=== PATIENT | female | born 1965 | race Caucasian/White ===

== ENCOUNTER 2020-08-27 14:20 | Inpatient (IN) | payer OTHER, SELFPAY ==
[2020-08-27] MEDS ORDERED: Morphine 4 MG/ML VIAL ONE ×2 (15:02→19:06)
[2020-08-27 16:35] LABS: #Basophils 0.1 thou/uL (0.0-0.2); #Eosinphils 0.4 thou/uL (0.0-0.7); #Lymphocytes 1.8 thou/uL (1.20-3.40); #Monocytes 0.7 thou/uL (0.11-0.59); #Neutrophils 7.3 thou/uL (1.40-6.50); %Basophils 0.6 % (0.0-1.0); %Eosinophils 3.7 % (0.0-10.0); %Lymphocytes 17.2 % (21.0-51.0); %Monocytes 6.8 % (0.0-10.0); %Neutrophils 71.7 % (42.0-75.0); Mean Corpuscular HGB CONC 32.2 g/dL (32.0-36.0); Mean Corpuscular Hemoglobin 26.7 pg (27.0-31.0); Mean Corpuscular Volume 82.8 fL (78.0-98.0); Mean Platelet Volume 6.6 fL (7.4-10.4); Platelet Count 252 thou/uL (130-400); RBC Distribution Width 14.2 % (11.5-14.5); White Blood Cell (WBC) Count 10.2 thou/uL (4.8-10.8)
[2020-08-27 16:41] LABS: INR-International Normal Ratio 1.1; PTT 27.1 sec (22.9-36.1); Prothrombin Time 14.1 sec (12.0-14.7)
[2020-08-27 16:57] LABS: ALT (SGPT) 11 U/L (8-55); AST (SGOT) 10 U/L (5-34); Albumin 3.9 g/dL (3.5-5.0); Alkaline Phosphatase 74 U/L (40-110); Anion Gap 16 mmol/L (10-20); BUN (Urea Nitrogen) 24 mg/dL (9.8-20.1); Bilirubin, Total 0.3 mg/dL (0.2-1.2); Calc. Creatinine Clearance 0 mL/min (70-130); Calcium 9.5 mg/dL (7.8-10.44); Carbon Dioxide 25 mmol/L (22-29); Chloride 105 mmol/L (98-107); Globulin 2.8 g/dL (2.4-3.5); Glucose 83 mg/dL (70-105); Potassium 4.8 mmol/L (3.5-5.1); Protein, Total 6.7 g/dL (6.0-8.3); Sodium 141 mmol/L (136-145)
[2020-08-27] MEDS ORDERED: Ondansetron ODT 4 MG TAB PO PRN (19:03)
[2020-08-27] MEDS ORDERED: Morphine 2 MG/ML VIAL SLOW IVP PRN (19:03)
[2020-08-27] MEDS ORDERED: Dextrose 50% Abboject 50 ML SYRINGE SLOW IVP PRN (19:03)
[2020-08-27] MEDS ORDERED: Dextrose 5% in Water 1,000 ML IV PRN (19:03)
[2020-08-27] MEDS ORDERED: Promethazine HCl 25 MG/ML VIAL IM PRN (19:03)
[2020-08-27] MEDS ORDERED: Insulin Regular 300 UNITS/3 ML VIAL SC PRN ×2 (19:03)
[2020-08-27] MEDS ORDERED: hydrALAZINE 20 MG/ML VIAL SLOW IVP PRN (19:03)
[2020-08-27] MEDS ORDERED: Ondansetron PF 4 MG/2 ML Vial IVP PRN (19:03)
[2020-08-27 20:14] VITALS: BMI 32.8
[2020-08-27] MEDS: Famotidine 20 MG TAB PO SCH (20:26)
[2020-08-27] MEDS: Acetaminophen 325 MG TAB PO SCH (20:26)
[2020-08-27] MEDS: Ibuprofen 200 MG TAB PO SCH (20:27)
[2020-08-27] MEDS: Cyclobenzaprine 10 MG TAB PO PRN (20:31)
[2020-08-27] MEDS: Sodium Chloride 0.9% 1,000 ML IV SCH (23:16)
[2020-08-28] MEDS: Acetaminophen 325 MG TAB PO SCH ×4 (01:23→19:20)
[2020-08-28 04:20] LABS: SARS-CoV-2 PCR by NAA Not Detected (NotDetected)
[2020-08-28] MEDS: Sodium Chloride 0.9% 1,000 ML IV SCH (05:00)
[2020-08-28] MEDS: Ibuprofen 200 MG TAB PO SCH (05:00)
[2020-08-28 05:27] LABS: #Basophils 0.1 thou/uL (0.0-0.2); #Eosinphils 0.3 thou/uL (0.0-0.7); #Lymphocytes 1.8 thou/uL (1.20-3.40); #Monocytes 0.6 thou/uL (0.11-0.59); #Neutrophils 4.2 thou/uL (1.40-6.50); %Basophils 0.9 % (0.0-1.0); %Eosinophils 4.4 % (0.0-10.0); %Lymphocytes 25.8 % (21.0-51.0); %Monocytes 7.9 % (0.0-10.0); %Neutrophils 60.9 % (42.0-75.0); Hemoglobin 10.6 g/dL (12.0-16.0); Mean Corpuscular HGB CONC 32.3 g/dL (32.0-36.0); Mean Corpuscular Hemoglobin 26.7 pg (27.0-31.0); Mean Corpuscular Volume 82.7 fL (78.0-98.0); Mean Platelet Volume 6.7 fL (7.4-10.4); Platelet Count 216 thou/uL (130-400); RBC Distribution Width 14.3 % (11.5-14.5); Red Blood Cell (RBC) Count 3.97 mill/uL (4.20-5.40); White Blood Cell (WBC) Count 6.9 thou/uL (4.8-10.8)
[2020-08-28 05:39] LABS: Anion Gap 13 mmol/L (10-20); BUN (Urea Nitrogen) 27 mg/dL (9.8-20.1); Calc. Creatinine Clearance 83 mL/min (70-130); Calcium 8.5 mg/dL (7.8-10.44); Carbon Dioxide 26 mmol/L (22-29); Chloride 105 mmol/L (98-107); Glucose 95 mg/dL (70-105); Potassium 4.4 mmol/L (3.5-5.1); Sodium 140 mmol/L (136-145)
[2020-08-28] MEDS ORDERED: Ibuprofen 200 MG TAB PO PRN (07:28)
[2020-08-28] MEDS ORDERED: Clindamycin/D5W 900 MG in Premix Bag 1 BAG IVPB SCH (07:45)
[2020-08-28] MEDS: Metoprolol Tartrate 100 MG TAB PO SCH ×2 (08:08→19:21)
[2020-08-28] MEDS: Famotidine 20 MG TAB PO SCH ×2 (08:08→19:19)
[2020-08-28] MEDS: Ferrous Sulfate 325 MG TAB PO SCH ×2 (08:09→16:19)
[2020-08-28] MEDS: Losartan 25 MG TAB PO SCH (08:09)
[2020-08-28] MEDS: Ascorbic Acid 500 mg Chewable Tablet PO SCH ×2 (08:09→19:21)
[2020-08-28] MEDS: Amlodipine 10 MG TAB PO SCH (08:09)
[2020-08-28] MEDS ORDERED: Amlodipine 10 MG TAB PO SCH (09:00)
[2020-08-28] MEDS ORDERED: Aspirin 81 mg Enteric Coated Tablet PO SCH (09:00)
[2020-08-28] MEDS ORDERED: Metoprolol Tartrate 100 MG TAB PO SCH (09:00)
[2020-08-28] MEDS ORDERED: Clindamycin/D5W 900 mg/50 ml Premix Bag ONE (12:24)
[2020-08-28] MEDS ORDERED: Fentanyl 100 MCG/2 ML VIAL ONE ×2 (13:05→13:15)
[2020-08-28] MEDS ORDERED: Rocuronium Bromide 10 MG/ML (10ML VIAL) ONE (13:26)
[2020-08-28] MEDS ORDERED: Ondansetron PF 4 MG/2 ML Vial ONE (13:26)
[2020-08-28] MEDS ORDERED: Glycopyrrolate 0.2 MG/ML 5 ML SYRINGE ONE (13:26)
[2020-08-28] MEDS ORDERED: ePHEDrine 50 MG/ML VIAL ONE (13:26)
[2020-08-28] MEDS ORDERED: PROPOFOL 200 MG/20 ML VIAL ONE (13:26)
[2020-08-28] MEDS ORDERED: Ketorolac Tromethamine 30 MG/ML VIAL ONE (13:26)
[2020-08-28] MEDS ORDERED: Bupivacaine HCl 0.5%/Epinephrine 1:200,000/PF 30 ml Vial ONE (13:26)
[2020-08-28] MEDS ORDERED: PHENYLEPHRINE-NS 100 MCG/ML 10 ML SYRINGE ONE (13:26)
[2020-08-28] MEDS: Clindamycin/D5W 900 MG in Premix Bag 1 BAG IVPB SCH ×2 (14:54→22:03)
[2020-08-28] MEDS: traMADol HCl 50 MG TAB PO PRN (17:48)
[2020-08-28] MEDS: Cyclobenzaprine 10 MG TAB PO PRN (19:19)
[2020-08-28] MEDS: Atorvastatin Calcium 40 MG TAB PO SCH (19:21)
[2020-08-29] MEDS: Acetaminophen 325 MG TAB PO SCH ×4 (02:56→19:46)
[2020-08-29 05:28] LABS: #Eosinphils 0.3 thou/uL (0.0-0.7); #Lymphocytes 1.5 thou/uL (1.20-3.40); #Monocytes 0.7 thou/uL (0.11-0.59); #Neutrophils 5.7 thou/uL (1.40-6.50); %Basophils 0.4 % (0.0-1.0); %Eosinophils 4.1 % (0.0-10.0); %Lymphocytes 18.4 % (21.0-51.0); %Monocytes 8.1 % (0.0-10.0); Hemoglobin 10.2 g/dL (12.0-16.0); Mean Corpuscular HGB CONC 33.9 g/dL (32.0-36.0); Mean Corpuscular Volume 82.6 fL (78.0-98.0); Mean Platelet Volume 6.6 fL (7.4-10.4); Platelet Count 194 thou/uL (130-400); RBC Distribution Width 14.4 % (11.5-14.5); Red Blood Cell (RBC) Count 3.63 mill/uL (4.20-5.40); White Blood Cell (WBC) Count 8.3 thou/uL (4.8-10.8)
[2020-08-29 05:50] LABS: Anion Gap 12 mmol/L (10-20); BUN (Urea Nitrogen) 22 mg/dL (9.8-20.1); Calc. Creatinine Clearance 79 mL/min (70-130); Calcium 8.3 mg/dL (7.8-10.44); Carbon Dioxide 27 mmol/L (22-29); Chloride 102 mmol/L (98-107); Glucose 164 mg/dL (70-105); Magnesium 1.6 mg/dL (1.6-2.6); Phosphorus 4.1 mg/dL (2.3-4.7); Potassium 4.7 mmol/L (3.5-5.1); Sodium 136 mmol/L (136-145)
[2020-08-29] MEDS: Ascorbic Acid 500 mg Chewable Tablet PO SCH ×2 (08:18→19:47)
[2020-08-29] MEDS: Famotidine 20 MG TAB PO SCH ×2 (08:18→19:45)
[2020-08-29] MEDS: Losartan 25 MG TAB PO SCH (08:19)
[2020-08-29] MEDS: Amlodipine 10 MG TAB PO SCH (08:19)
[2020-08-29] MEDS: Metoprolol Tartrate 100 MG TAB PO SCH ×2 (08:20→19:47)
[2020-08-29] MEDS: Ferrous Sulfate 325 MG TAB PO SCH ×2 (08:20→16:00)
[2020-08-29] MEDS ORDERED: Magnesium Sulfate 4 GM in Sodium Chloride 0.9% 250 ML 250 ML IVPB SCH (10:30)
[2020-08-29] MEDS: traMADol HCl 50 MG TAB PO PRN ×2 (11:06→19:50)
[2020-08-29] MEDS: Cyclobenzaprine 10 MG TAB PO PRN (14:43)
[2020-08-29] MEDS: Enoxaparin Sodium 40 MG/0.4 ML SYRINGE SC SCH (19:46)
[2020-08-29] MEDS: Atorvastatin Calcium 40 MG TAB PO SCH (19:47)
[2020-08-29] MEDS ORDERED: Enoxaparin Sodium 30 MG/0.3 ML SYRINGE SC SCH (21:00)
[2020-08-30] MEDS: Acetaminophen 325 MG TAB PO SCH ×4 (03:03→19:03)
[2020-08-30 05:31] LABS: Hemoglobin 10.6 g/dL (12.0-16.0); Mean Corpuscular HGB CONC 33.4 g/dL (32.0-36.0); Mean Corpuscular Hemoglobin 27.7 pg (27.0-31.0); Mean Corpuscular Volume 83.1 fL (78.0-98.0); Mean Platelet Volume 6.6 fL (7.4-10.4); Platelet Count 191 thou/uL (130-400); RBC Distribution Width 14.1 % (11.5-14.5); Red Blood Cell (RBC) Count 3.83 mill/uL (4.20-5.40); White Blood Cell (WBC) Count 8.5 thou/uL (4.8-10.8)
[2020-08-30 06:00] LABS: Anion Gap 13 mmol/L (10-20); BUN (Urea Nitrogen) 19 mg/dL (9.8-20.1); Calc. Creatinine Clearance 94 mL/min (70-130); Calcium 8.4 mg/dL (7.8-10.44); Carbon Dioxide 27 mmol/L (22-29); Chloride 101 mmol/L (98-107); Glucose 143 mg/dL (70-105); Potassium 4.8 mmol/L (3.5-5.1); Sodium 136 mmol/L (136-145)
[2020-08-30] MEDS: Metoprolol Tartrate 100 MG TAB PO SCH ×2 (08:48→20:03)
[2020-08-30] MEDS: Ferrous Sulfate 325 MG TAB PO SCH ×2 (08:48→20:03)
[2020-08-30] MEDS: Famotidine 20 MG TAB PO SCH ×2 (08:49→20:03)
[2020-08-30] MEDS: Losartan 25 MG TAB PO SCH (08:49)
[2020-08-30] MEDS: Ascorbic Acid 500 mg Chewable Tablet PO SCH ×2 (08:49→20:03)
[2020-08-30] MEDS: Amlodipine 10 MG TAB PO SCH (08:49)
[2020-08-30] MEDS: Enoxaparin Sodium 40 MG/0.4 ML SYRINGE SC SCH ×2 (08:50→20:04)
[2020-08-30 09:17] LABS: Anion Gap 15 mmol/L (10-20); BUN (Urea Nitrogen) 17 mg/dL (9.8-20.1); Calc. Creatinine Clearance 105 mL/min (70-130); Calcium 8.6 mg/dL (7.8-10.44); Carbon Dioxide 21 mmol/L (22-29); Chloride 104 mmol/L (98-107); Glucose 127 mg/dL (70-105); Magnesium 1.8 mg/dL (1.6-2.6); Phosphorus 3.7 mg/dL (2.3-4.7); Potassium 4.9 mmol/L (3.5-5.1); Sodium 135 mmol/L (136-145)
[2020-08-30] MEDS: traMADol HCl 50 MG TAB PO PRN ×2 (11:29→20:07)
[2020-08-30] MEDS: Atorvastatin Calcium 40 MG TAB PO SCH (20:03)
[2020-08-31] MEDS: Acetaminophen 325 MG TAB PO SCH ×4 (01:04→19:36)
[2020-08-31] MEDS: Enoxaparin Sodium 40 MG/0.4 ML SYRINGE SC SCH ×2 (08:16→21:44)
[2020-08-31] MEDS: Ascorbic Acid 500 mg Chewable Tablet PO SCH ×2 (08:17→21:44)
[2020-08-31] MEDS: Famotidine 20 MG TAB PO SCH (08:17)
[2020-08-31] MEDS: Amlodipine 10 MG TAB PO SCH (08:18)
[2020-08-31] MEDS: Losartan 25 MG TAB PO SCH (08:18)
[2020-08-31] MEDS: Metoprolol Tartrate 100 MG TAB PO SCH ×2 (08:19→21:44)
[2020-08-31] MEDS: Ferrous Sulfate 325 MG TAB PO SCH ×2 (08:22→21:44)
[2020-08-31] MEDS: Senokot S 8.6-50 MG TAB PO SCH ×2 (09:42→21:44)
[2020-08-31] MEDS: Polyethylene Glycol 3350 17 GM Packet PO SCH (09:42)
[2020-08-31] MEDS: traMADol HCl 50 MG TAB PO PRN (09:43)
[2020-08-31] MEDS: Atorvastatin Calcium 40 MG TAB PO SCH (21:44)
[2020-09-01] MEDS: Acetaminophen 325 MG TAB PO SCH ×4 (00:23→18:12)
[2020-09-01] MEDS: Ascorbic Acid 500 mg Chewable Tablet PO SCH ×2 (09:27→21:58)
[2020-09-01] MEDS: Senokot S 8.6-50 MG TAB PO SCH ×2 (09:27→21:58)
[2020-09-01] MEDS: Polyethylene Glycol 3350 17 GM Packet PO SCH (09:27)
[2020-09-01] MEDS: Amlodipine 10 MG TAB PO SCH (09:28)
[2020-09-01] MEDS: Ferrous Sulfate 325 MG TAB PO SCH ×2 (09:28→21:59)
[2020-09-01] MEDS: Losartan 25 MG TAB PO SCH (09:28)
[2020-09-01] MEDS: Metoprolol Tartrate 100 MG TAB PO SCH ×2 (09:29→21:58)
[2020-09-01] MEDS: Enoxaparin Sodium 40 MG/0.4 ML SYRINGE SC SCH ×2 (09:29→21:58)
[2020-09-01] MEDS: traMADol HCl 50 MG TAB PO PRN (18:20)
[2020-09-01] MEDS: Atorvastatin Calcium 40 MG TAB PO SCH (21:58)
[2020-09-02] MEDS: Acetaminophen 325 MG TAB PO SCH ×4 (00:35→17:38)
[2020-09-02] MEDS: Ascorbic Acid 500 mg Chewable Tablet PO SCH ×2 (09:02→21:09)
[2020-09-02] MEDS: Losartan 25 MG TAB PO SCH (09:02)
[2020-09-02] MEDS: Ferrous Sulfate 325 MG TAB PO SCH ×2 (09:02→21:10)
[2020-09-02] MEDS: Metoprolol Tartrate 100 MG TAB PO SCH ×2 (09:02→21:10)
[2020-09-02] MEDS: Amlodipine 10 MG TAB PO SCH (09:02)
[2020-09-02] MEDS: Enoxaparin Sodium 40 MG/0.4 ML SYRINGE SC SCH ×2 (09:03→21:09)
[2020-09-02] MEDS: Polyethylene Glycol 3350 17 GM Packet PO SCH (09:03)
[2020-09-02] MEDS: Senokot S 8.6-50 MG TAB PO SCH ×2 (09:03→21:09)
[2020-09-02] MEDS: traMADol HCl 50 MG TAB PO PRN ×2 (12:31→17:42)
[2020-09-02] MEDS: Atorvastatin Calcium 40 MG TAB PO SCH (21:09)
[2020-09-03] MEDS: Acetaminophen 325 MG TAB PO SCH ×5 (03:59→22:59)
[2020-09-03] MEDS: Losartan 25 MG TAB PO SCH (09:40)
[2020-09-03] MEDS: Amlodipine 10 MG TAB PO SCH (09:41)
[2020-09-03] MEDS: Ascorbic Acid 500 mg Chewable Tablet PO SCH ×2 (09:41→20:13)
[2020-09-03] MEDS: Metoprolol Tartrate 100 MG TAB PO SCH ×2 (09:41→20:14)
[2020-09-03] MEDS: Senokot S 8.6-50 MG TAB PO SCH ×2 (09:42→20:13)
[2020-09-03] MEDS: Ferrous Sulfate 325 MG TAB PO SCH ×2 (09:42→20:14)
[2020-09-03] MEDS: Polyethylene Glycol 3350 17 GM Packet PO SCH (09:43)
[2020-09-03] MEDS: traMADol HCl 50 MG TAB PO PRN (09:43)
[2020-09-03] MEDS: Enoxaparin Sodium 40 MG/0.4 ML SYRINGE SC SCH ×2 (09:43→20:13)
[2020-09-03] MEDS: Atorvastatin Calcium 40 MG TAB PO SCH (20:14)
[2020-09-04] MEDS: traMADol HCl 50 MG TAB PO PRN (05:07)
[2020-09-04] MEDS: Acetaminophen 325 MG TAB PO SCH ×3 (05:08→18:31)
[2020-09-04] MEDS: Senokot S 8.6-50 MG TAB PO SCH ×2 (09:43→20:45)
[2020-09-04] MEDS: Ferrous Sulfate 325 MG TAB PO SCH ×2 (09:43→20:46)
[2020-09-04] MEDS: Enoxaparin Sodium 40 MG/0.4 ML SYRINGE SC SCH ×3 (09:44→20:46)
[2020-09-04] MEDS: Metoprolol Tartrate 100 MG TAB PO SCH ×2 (09:44→20:45)
[2020-09-04] MEDS: Ascorbic Acid 500 mg Chewable Tablet PO SCH ×2 (09:45→20:46)
[2020-09-04] MEDS: Losartan 25 MG TAB PO SCH (09:45)
[2020-09-04] MEDS: Amlodipine 10 MG TAB PO SCH (09:45)
[2020-09-04] MEDS: Polyethylene Glycol 3350 17 GM Packet PO SCH (09:46)
[2020-09-04] MEDS: Atorvastatin Calcium 40 MG TAB PO SCH (20:46)
[2020-09-05] MEDS: Acetaminophen 325 MG TAB PO SCH ×4 (00:21→17:37)
[2020-09-05] MEDS: traMADol HCl 50 MG TAB PO PRN ×3 (00:22→21:36)
[2020-09-05] MEDS: Senokot S 8.6-50 MG TAB PO SCH ×2 (09:14→21:36)
[2020-09-05] MEDS: Polyethylene Glycol 3350 17 GM Packet PO SCH (09:14)
[2020-09-05] MEDS: Losartan 25 MG TAB PO SCH (09:15)
[2020-09-05] MEDS: Metoprolol Tartrate 100 MG TAB PO SCH ×2 (09:15→21:36)
[2020-09-05] MEDS: Ferrous Sulfate 325 MG TAB PO SCH ×2 (09:15→21:36)
[2020-09-05] MEDS: Enoxaparin Sodium 40 MG/0.4 ML SYRINGE SC SCH ×2 (09:15→21:37)
[2020-09-05] MEDS: Ascorbic Acid 500 mg Chewable Tablet PO SCH ×2 (09:15→21:36)
[2020-09-05] MEDS: Amlodipine 10 MG TAB PO SCH (09:15)
[2020-09-05] MEDS ORDERED: metFORMIN 500 MG TAB PO SCH (11:00)
[2020-09-05] MEDS: metFORMIN 500 MG TAB PO SCH (17:38)
[2020-09-05] MEDS: Atorvastatin Calcium 40 MG TAB PO SCH (21:36)
[2020-09-06] MEDS: Acetaminophen 325 MG TAB PO SCH ×4 (00:13→17:22)
[2020-09-06] MEDS: metFORMIN 500 MG TAB PO SCH ×2 (08:23→17:22)
[2020-09-06] MEDS: Losartan 25 MG TAB PO SCH (09:35)
[2020-09-06] MEDS: Ferrous Sulfate 325 MG TAB PO SCH ×2 (09:37→21:34)
[2020-09-06] MEDS: Ascorbic Acid 500 mg Chewable Tablet PO SCH ×2 (09:38→21:33)
[2020-09-06] MEDS: Amlodipine 10 MG TAB PO SCH (09:39)
[2020-09-06] MEDS: Senokot S 8.6-50 MG TAB PO SCH ×2 (09:40→21:33)
[2020-09-06] MEDS: Alogliptin 6.25 MG TAB PO SCH (09:41)
[2020-09-06] MEDS: Metoprolol Tartrate 100 MG TAB PO SCH ×2 (09:41→21:34)
[2020-09-06] MEDS: Enoxaparin Sodium 40 MG/0.4 ML SYRINGE SC SCH ×2 (09:44→21:34)
[2020-09-06] MEDS: Polyethylene Glycol 3350 17 GM Packet PO SCH (09:45)
[2020-09-06] MEDS: Cyclobenzaprine 10 MG TAB PO PRN (21:33)
[2020-09-06] MEDS: Atorvastatin Calcium 40 MG TAB PO SCH (21:34)
[2020-09-07] MEDS: Acetaminophen 325 MG TAB PO SCH ×4 (02:16→17:33)
[2020-09-07] MEDS ORDERED: traMADol HCl 50 MG TAB PO PRN (07:21)
[2020-09-07] MEDS: Cyclobenzaprine 10 MG TAB PO PRN ×2 (08:24→17:33)
[2020-09-07] MEDS: traMADol HCl 50 MG TAB PO PRN (08:25)
[2020-09-07] MEDS: Alogliptin 6.25 MG TAB PO SCH (09:41)
[2020-09-07] MEDS: metFORMIN 500 MG TAB PO SCH ×2 (09:41→17:32)
[2020-09-07] MEDS: Amlodipine 10 MG TAB PO SCH (09:42)
[2020-09-07] MEDS: Ascorbic Acid 500 mg Chewable Tablet PO SCH ×2 (09:42→21:09)
[2020-09-07] MEDS: Enoxaparin Sodium 40 MG/0.4 ML SYRINGE SC SCH ×2 (09:43→20:27)
[2020-09-07] MEDS: Ferrous Sulfate 325 MG TAB PO SCH ×2 (09:43→21:09)
[2020-09-07] MEDS: Polyethylene Glycol 3350 17 GM Packet PO SCH (09:44)
[2020-09-07] MEDS: Senokot S 8.6-50 MG TAB PO SCH ×2 (09:44→21:10)
[2020-09-07] MEDS: Metoprolol Tartrate 100 MG TAB PO SCH ×2 (09:44→21:10)
[2020-09-07] MEDS: Losartan 25 MG TAB PO SCH (09:47)
[2020-09-07] MEDS: Atorvastatin Calcium 40 MG TAB PO SCH (21:09)
[2020-09-08] MEDS: Acetaminophen 325 MG TAB PO SCH ×5 (00:35→23:30)
[2020-09-08] MEDS: metFORMIN 500 MG TAB PO SCH ×2 (06:45→16:43)
[2020-09-08] MEDS: Losartan 25 MG TAB PO SCH (09:14)
[2020-09-08] MEDS: Amlodipine 10 MG TAB PO SCH (09:15)
[2020-09-08] MEDS: Senokot S 8.6-50 MG TAB PO SCH ×2 (09:15→20:52)
[2020-09-08] MEDS: Polyethylene Glycol 3350 17 GM Packet PO SCH (09:15)
[2020-09-08] MEDS: Ascorbic Acid 500 mg Chewable Tablet PO SCH ×2 (09:15→20:51)
[2020-09-08] MEDS: Metoprolol Tartrate 100 MG TAB PO SCH ×2 (09:15→20:52)
[2020-09-08] MEDS: Alogliptin 6.25 MG TAB PO SCH (09:15)
[2020-09-08] MEDS: Enoxaparin Sodium 40 MG/0.4 ML SYRINGE SC SCH ×2 (09:16→20:51)
[2020-09-08] MEDS: Ferrous Sulfate 325 MG TAB PO SCH ×2 (09:16→20:51)
[2020-09-08] MEDS: Atorvastatin Calcium 40 MG TAB PO SCH (20:51)
[2020-09-08] MEDS: Cyclobenzaprine 10 MG TAB PO PRN (23:28)
[2020-09-09] MEDS: Acetaminophen 325 MG TAB PO SCH ×3 (06:09→17:10)
[2020-09-09] MEDS: metFORMIN 500 MG TAB PO SCH ×2 (06:45→17:10)
[2020-09-09] MEDS: Ferrous Sulfate 325 MG TAB PO SCH ×2 (08:26→21:06)
[2020-09-09] MEDS: Losartan 25 MG TAB PO SCH (08:26)
[2020-09-09] MEDS: Senokot S 8.6-50 MG TAB PO SCH ×2 (08:26→21:06)
[2020-09-09] MEDS: Enoxaparin Sodium 40 MG/0.4 ML SYRINGE SC SCH ×2 (08:26→21:07)
[2020-09-09] MEDS: Polyethylene Glycol 3350 17 GM Packet PO SCH (08:26)
[2020-09-09] MEDS: Alogliptin 6.25 MG TAB PO SCH (08:26)
[2020-09-09] MEDS: Amlodipine 10 MG TAB PO SCH (08:26)
[2020-09-09] MEDS: Metoprolol Tartrate 100 MG TAB PO SCH ×2 (08:27→21:07)
[2020-09-09] MEDS: Ascorbic Acid 500 mg Chewable Tablet PO SCH ×2 (08:27→21:06)
[2020-09-09] MEDS: Atorvastatin Calcium 40 MG TAB PO SCH (21:06)
[2020-09-09] MEDS: Cyclobenzaprine 10 MG TAB PO PRN (21:16)
[2020-09-10] MEDS: Acetaminophen 325 MG TAB PO SCH ×5 (00:22→23:32)
[2020-09-10] MEDS: metFORMIN 500 MG TAB PO SCH ×2 (06:30→17:05)
[2020-09-10] MEDS: Polyethylene Glycol 3350 17 GM Packet PO SCH (08:17)
[2020-09-10] MEDS: Alogliptin 6.25 MG TAB PO SCH (08:17)
[2020-09-10] MEDS: Losartan 25 MG TAB PO SCH (08:18)
[2020-09-10] MEDS: Enoxaparin Sodium 40 MG/0.4 ML SYRINGE SC SCH ×2 (08:18→20:23)
[2020-09-10] MEDS: Amlodipine 10 MG TAB PO SCH (08:18)
[2020-09-10] MEDS: Metoprolol Tartrate 100 MG TAB PO SCH ×2 (08:18→20:31)
[2020-09-10] MEDS: Ascorbic Acid 500 mg Chewable Tablet PO SCH ×2 (08:18→20:23)
[2020-09-10] MEDS: Ferrous Sulfate 325 MG TAB PO SCH ×2 (08:19→20:22)
[2020-09-10] MEDS: Senokot S 8.6-50 MG TAB PO SCH ×2 (08:19→20:22)
[2020-09-10] MEDS ORDERED: Ibuprofen 100 MG/5 ML UDCUP PO PRN (09:44)
[2020-09-10] MEDS: traMADol HCl 50 MG TAB PO PRN ×2 (11:41→23:33)
[2020-09-10] MEDS: Atorvastatin Calcium 40 MG TAB PO SCH (20:23)
[2020-09-10] MEDS: Cyclobenzaprine 10 MG TAB PO PRN (20:23)
[2020-09-11] MEDS: Acetaminophen 325 MG TAB PO SCH ×3 (06:25→17:34)
[2020-09-11] MEDS: metFORMIN 500 MG TAB PO SCH ×2 (06:25→17:34)
[2020-09-11] MEDS: Enoxaparin Sodium 40 MG/0.4 ML SYRINGE SC SCH ×2 (08:26→20:49)
[2020-09-11] MEDS: Senokot S 8.6-50 MG TAB PO SCH ×2 (08:26→20:48)
[2020-09-11] MEDS: Ferrous Sulfate 325 MG TAB PO SCH ×2 (08:26→20:48)
[2020-09-11] MEDS: Metoprolol Tartrate 100 MG TAB PO SCH ×2 (08:26→20:48)
[2020-09-11] MEDS: Polyethylene Glycol 3350 17 GM Packet PO SCH (08:26)
[2020-09-11] MEDS: Losartan 25 MG TAB PO SCH (08:26)
[2020-09-11] MEDS: Amlodipine 10 MG TAB PO SCH (08:27)
[2020-09-11] MEDS: Alogliptin 6.25 MG TAB PO SCH (08:27)
[2020-09-11] MEDS: Ascorbic Acid 500 mg Chewable Tablet PO SCH ×2 (08:27→20:48)
[2020-09-11] MEDS: Folic Acid 1 MG TAB PO SCH (08:27)
[2020-09-11] MEDS: Cyclobenzaprine 10 MG TAB PO PRN (20:48)
[2020-09-11] MEDS: Atorvastatin Calcium 40 MG TAB PO SCH (20:48)
[2020-09-12] MEDS: Acetaminophen 325 MG TAB PO SCH ×3 (00:06→13:11)
[2020-09-12] MEDS: metFORMIN 500 MG TAB PO SCH (06:35)
[2020-09-12] MEDS: Polyethylene Glycol 3350 17 GM Packet PO SCH (09:56)
[2020-09-12] MEDS: Enoxaparin Sodium 40 MG/0.4 ML SYRINGE SC SCH (09:57)
[2020-09-12] MEDS: Metoprolol Tartrate 100 MG TAB PO SCH (09:57)
[2020-09-12] MEDS: Ascorbic Acid 500 mg Chewable Tablet PO SCH (09:57)
[2020-09-12] MEDS: Folic Acid 1 MG TAB PO SCH (09:57)
[2020-09-12] MEDS: Amlodipine 10 MG TAB PO SCH (09:57)
[2020-09-12] MEDS: Senokot S 8.6-50 MG TAB PO SCH (09:57)
[2020-09-12] MEDS: Ferrous Sulfate 325 MG TAB PO SCH (09:57)
[2020-09-12] MEDS: Losartan 25 MG TAB PO SCH (09:57)
[2020-09-12] MEDS: Alogliptin 6.25 MG TAB PO SCH (10:58)
[2020-09-12 16:22] VITALS: BP 113/76; TEMP 97.9
== END 2020-09-12 17:18 | DRG 481 ==
LOC: ERS 14:20 → SURG B 16:57 → OBSVTOIN 19:03
PROVIDERS: ADMIT Specialist; ATTEND Specialist
PROC: 0QSB34Z Reposition Right Lower Femur with Internal Fixation Device, Percutaneous Approach (ICD-10-PCS; principal; 2020-08-28)
DX: S72.002A Fracture of unspecified part of neck of left femur, initial encounter for closed fracture (principal); I82.C11 Acute embolism and thrombosis of right internal jugular vein; S72.142A Displaced intertrochanteric fracture of left femur, initial encounter for closed fracture; Z20.822 Contact with and (suspected) exposure to COVID-19; E11.9 Type 2 diabetes mellitus without complications; I10 Essential (primary) hypertension; W18.31XA Fall on same level due to stepping on an object, initial encounter; F17.210 Nicotine dependence, cigarettes, uncomplicated; E78.5 Hyperlipidemia, unspecified; E66.9 Obesity, unspecified; I69.351 Hemiplegia and hemiparesis following cerebral infarction affecting right dominant side; I69.320 Aphasia following cerebral infarction; Z79.84 Long term (current) use of oral hypoglycemic drugs; Z79.82 Long term (current) use of aspirin; Z79.899 Other long term (current) drug therapy; Z90.710 Acquired absence of both cervix and uterus; Y92.000 Kitchen of unspecified non-institutional (private) residence as the place of occurrence of the external cause; Z88.1 Allergy status to other antibiotic agents; Z91.041 Radiographic dye allergy status; Z68.32 Body mass index [BMI] 32.0-32.9, adult
CPT/HCPCS: 36415; 36416; 76000; 80048; 80053; 83735; 84100; 85025; 85027; 85610; 85730; 86850; 86900; 86901; 87635; 93970; 94640; 96374; 96376; C1713; G0390; J1650; J1815; J1885; J2270; J2405; J2704; J3010; J3475; J3490; J7050; J7620; U0003; U0005

== ENCOUNTER 2023-04-29 15:58 | Outpatient (CLI) | payer MEDICARE | END 2023-04-29 15:59 | disposition home or self-care (01) | LOC: BICMAMMO 15:58 | PROVIDERS: ATTEND Family Medicine | DX: Z12.31 Encounter for screening mammogram for malignant neoplasm of breast (principal); Z80.3 Family history of malignant neoplasm of breast | CPT/HCPCS: 77063; 77067 ==

== ENCOUNTER 2023-11-19 10:03 | Outpatient (CLI) | payer MEDICARE | END 2023-11-19 10:04 | disposition home or self-care (01) | LOC: ULT 10:03 | PROVIDERS: ATTEND Family Medicine | DX: N18.32 Chronic kidney disease, stage 3b (principal) | CPT/HCPCS: 76770 ==